=== PATIENT | female | born 1960 | race Two or more races ===

== ENCOUNTER 2017-08-13 08:13 | Outpatient (CLI) | payer OTHER | END 2017-08-13 08:19 | disposition home or self-care (01) | LOC: SONOGRAMA 08:13 | DX: E03.8 Other specified hypothyroidism (principal) ==

== ENCOUNTER 2017-08-23 07:42 | Outpatient (CLI) | payer OTHER | END 2017-08-23 15:58 | disposition home or self-care (01) | LOC: TOM 07:42 | DX: R55 Syncope and collapse (principal) ==

== ENCOUNTER 2020-03-17 11:29 | Outpatient (CLI) | payer OTHER | END 2020-03-17 11:33 | disposition home or self-care (01) | LOC: SONOGRAMA 11:29 | PROVIDERS: ATTEND Pathology Anatomic Pathology & Clinical Pathology | DX: E03.8 Other specified hypothyroidism (principal) ==

== ENCOUNTER 2020-03-25 13:08 | Outpatient (CLI) | payer OTHER | END 2020-03-25 13:21 | disposition home or self-care (01) | LOC: NUCLEAR 13:08 | PROVIDERS: ATTEND Obstetrics & Gynecology | DX: M81.0 Age-related osteoporosis without current pathological fracture (principal); N95.1 Menopausal and female climacteric states ==

== ENCOUNTER 2024-08-25 12:33 | Outpatient (CLI) | payer OTHER | END 2024-08-25 12:34 | disposition home or self-care (01) | LOC: NUCLEAR 12:33 | DX: M85.88 Other specified disorders of bone density and structure, other site (principal); M81.0 Age-related osteoporosis without current pathological fracture ==